=== PATIENT | male | born 1945 | race Caucasian/White ===

== ENCOUNTER 2017-02-20 17:32 | Emergency (ER) | payer MEDICARE, OTHER ==
[~2017-02-20] VITALS: Ht 172.7 cm; Wt 85.0 kg
[2017-02-20 17:38] VITALS: BP 155/86; PULSE 79; RESP 17; TEMP 98.3; O2SAT 98
[2017-02-20] MEDS ORDERED: ATOR20TA15 PO (17:49)
[2017-02-20] MEDS ORDERED: NEXI20CA PO (17:49)
[2017-02-20] MEDS ORDERED: VENTAER INH (18:19)
[2017-02-20] MEDS ORDERED: AZIT250T3 PO (18:19)
[2017-02-20] MEDS ORDERED: PRED20 PO (18:19)
--- NOTE | 2017-02-20 18:19 | PD ---
HPI Chief Complaint: Cold / Flu Symptoms Time Seen by Provider: 18:04 Travel History International Travel<30 days: No Contact w/Intl Traveler<30days: No Traveled to known affect area: No History of Present Illness HPI 71-year-old male with productive cough 2 weeks. Patient reports symptoms began as a viral upper respiratory infection which included nasal congestion, sore throat, body aches, cough. All symptoms resolved with the exception of cough. Symptoms are unrelieved with OTC cough and cold medications. Symptom severity is moderate. No aggravating or alleviating factors. PFSH Past Medical History Cancer: Yes High Cholesterol: Yes Diminished Hearing: No GERD: Yes Tetanus Vaccination: Unknown Influenza Vaccination: Yes ?: Not Past Surgical History Abdominal Surgery: Yes (left kidney removed ) Social History Alcohol Use: No Tobacco Use: No Substance Use: No Allergies-Medications (Allergen,Severity, Reaction): Coded Allergies: No Known Allergies (Unverified , 02/20/17) Reported Meds & Prescriptions Reported Meds & Active Scripts Active Reported Nexium (Esomeprazole DR) 20 Mg Capdr 20 Mg PO DAILY Atorvastatin (Atorvastatin Calcium) 20 Mg Tab 20 Mg PO HS Review of Systems Except as stated in HPI: all other systems reviewed are Neg General / Constitutional: No: Fever Eyes: No: Visual changes HENT: No: Headaches Cardiovascular: No: Chest Pain or Discomfort Respiratory: Positive: Cough Gastrointestinal: No: Abdominal Pain Genitourinary: No: Dysuria Physical Exam Narrative GENERAL: Alert male well-appearing. SKIN: Warm and dry. HEAD: Atraumatic. Normocephalic. EYES: Pupils equal and round. No scleral icterus. No injection or drainage. ENT: No nasal bleeding or discharge. Mucous membranes pink and moist. NECK: Trachea midline. No JVD. CARDIOVASCULAR: Regular rate and rhythm. RESPIRATORY: No accessory muscle use. Breath sounds equal bilaterally. Harsh sounding cough with rhonchi. GASTROINTESTINAL: Abdomen soft, non-tender, nondistended. Hepatic and splenic margins not palpable. MUSCULOSKELETAL: Extremities without clubbing, cyanosis, or edema. No obvious deformities. Data Data Last Documented VS Vital Signs Date Time Temp Pulse Resp B/P (MAP) Pulse Ox O2 Delivery O2 Flow Rate FiO2 02/20/17 17:38 98.3 79 17 155/86 (109) 98 MDM Medical Decision Making Medical Screen Exam Complete: Yes Emergency Medical Condition: Yes Differential Diagnosis Influenza, pneumonia, bronchitis Narrative Course 71-year-old male with a cough present for 2 weeks. He is well-appearing. Vital signs are stable. He has a harsh sounding cough with rhonchi. Patient will be treated for bronchitis. He is to follow-up with his primary doctor Diagnosis Primary Impression: Bronchitis Referrals: Primary Care Physician Additional Instructions: Stay well hydrated by drinking plenty of fluids. Take the medication as prescribed. Follow-up with her primary doctor. Scripts Albuterol 18 GM Inh (Ventolin Hfa 18 GM Inh) 90 Mcg/Act Aer 2 PUFF INH Q4-6H Y for SHORTNESS OF BREATH, #1 INHALER 0 Refills Prov: Daisy Murray 02/20/17 Prednisone (Prednisone) 20 Mg Tab 40 MG PO DAILY, #8 TAB 0 Refills Take 40 mg (2 tablets) daily for 5 days Prov: Daisy Murray 02/20/17 Azithromycin (Azithromycin) 250 Mg Tab 250 MG PO DIRECTED for Infection, #6 TAB 0 Refills Take 2 tabs (500 mg) on day 1 then 1 tab daily x 4 days. Prov: Daisy Murray 02/20/17 Disposition: 01 DISCHARGE HOME Condition: Stable Daisy Murray Feb 20, 2017 18:19
== END 2017-02-20 18:27 | disposition home or self-care (01) ==
LOC: PHEFT 17:32
DX: J40 Bronchitis, not specified as acute or chronic (principal); E78.00 Pure hypercholesterolemia, unspecified; K21.9 Gastro-esophageal reflux disease without esophagitis; Z79.899 Other long term (current) drug therapy
CPT/HCPCS: 99284